=== PATIENT | female | born 1995 | race Caucasian/White ===

== ENCOUNTER 2025-03-03 07:55 | Inpatient (IN) | payer OTHER, SELFPAY ==
[2025-03-03] VITALS (51 sets, daily range): BP systolic 87–120; BP diastolic 46–76; PULSE 58–190; RESP 16–18; TEMP 36.4–36.7; O2SAT 80–100; BMI 25.6
[2025-03-03] MEDS: Lactated Ringers 1,000 ML 50 ML IV (08:20)
--- OUTSIDE RECORDS SUMMARY | 2025-03-03 08:25 | XMS RPT_ITS | CCD ---
Author Organization [facility] Informat ion Partnership [facility] Care Team Providers Care Process Stripper Name Role Phone Linda Griffith Attending Unavailable Linda Griffith Admitting Unavailable Emily Tsang Primary Care Unavailable Encounters Encounter Date Encounter Type Care Provider Facility Start: 03-03-2025 ambulatory Linda Griffith Facilit y:[facility] Payers Date Payer Category Payer Self-pay 2024 Unknown [id number] Unknown [id number] Summary Purpose Family History No Family History Records Found Advance Directives No Advanced Directives Records Found Additional Source Comments INFORMATION SOURCE (unrecogn ized section and content) DATE CREATED AUTHOR 03/03/2025 [facility] FOR RECORDS PERTAINING TO PATIENTS WHO ARE OR HAVE BEEN ENROLLED IN A CHEMICAL DEPENDENCY/SUBSTANCEABUSE PROGRAM, SOME INFORMATION MAY BE OMITTED. This clinical summary was aggregated from multiple sources. Caution should be exercised in using it in the provision of clinical care. This summary normalizes information from multiple sources, and as a consequence, information in this document may materially change the coding, format and clinical context of patient data. In addition, data may be omitted in some cases. CLINICAL DECISIONS SHOULD BE BASED ON THE PRIMARY CLINICAL RECORDS. [facility]. provides no warranty or guarantee of the accuracy or completeness of information in this document.
[2025-03-03 08:45] LABS: Hematocrit 38.5 % (37-47); Hemoglobin 13.5 g/dL (12.0-15.0); Immature Granulocytes Count 0.120 X10^3/uL (0.0-0.0); Mean Corp Hgb Conc 35.1 g/dL (32-36); Mean Corpuscular Volume 91.4 fL (81-99); Mean Platelet Vol. 10.2 fl (6.2-12.0); NRBC Flagged by Analyzer 0 % (0-5); Platelet Count 182 K/mm3 (150-450); RBC Distribution Width CV 13.2 % (11.6-14.6); RBC Distribution Width SD 42.9 fl (35.1-43.9); Red Blood Count 4.21 M/mm3 (4.2-5.4); White Blood Count 7.1 K/mm3 (4.4-11.0)
[2025-03-03] MEDS: Oxytocin 15 Units/NS 250ml 15 UNITS/250 ML IV.SOLN 2 UNITS IV (08:58)
[2025-03-03 09:45] LABS: Syphilis Antibodies Nonreactive (Nonreactive)
[2025-03-03] MEDS: Lactated Ringers 1,000 ML 999 ML IV ×2 (12:36→15:29)
[2025-03-03] MEDS: fentaNYL-bupivacaine (epidural) 100 ML BAG EPIDURAL (13:21)
[2025-03-03] MEDS: Lactated Ringers 1,000 ML 200 ML IV (16:33)
--- NOTE | 2025-03-03 18:29 | PCM.HP.OB ---
HPI - General General Date of Admission: 03/03/25 Date of Service: 03/03/25 Chief Complaint: induction HPI Narrative MARCY GIRALDO, is a 29 F who presents at 41 weeks and 1 day for induction of labor. She has had some irregular contractions. No gross vaginal bleeding or leaking of fluid. Maternal Data Information Final ARLETTE: [birth year] Gestational age: 41 1/7 [facility] Medical History (Updated 03/03/25 @ 18:[address] Marly Mac MD) Depression Home Medications ?Medication ?Instructions ?Recorded ?Last Taken ?Type aspirin 81 mg capsule 81 mg PO DAILY 03/03/25 03/02/25 20:00 History 81 mg vitamin-ferrous sulfate 1 tab PO DAILY 03/03/25 03/02/25 20:00 History 27 mg iron-folic acid 0.8 mg tablet 1 TAB Allergy/AdvReac Type Severity Reaction Status Date / Time No Known Allergies Allergy Verified 03/03/25 08:17 Social History Smoking Status: Never smoker History Elective abortions Hx Para 0 Spontaneous abortions Hx # Term Pregnancies Ectopic pregnancies Hx # Pregnancies Multiple births # of living children ROS Constitutional Constitutional: Denies fatigue, fever(s) or malaise Eyes Eyes: Denies change in vision ENT HEENT: Denies dizziness or headache(s) Cardiovascular Cardiovascular: Denies chest pain, dyspnea or lightheadedness Respiratory/Chest Respiratory/Chest: Denies cough or dyspnea Gastrointestinal Gastrointestinal: Denies change in bowel habits Genitourinary Genitourinary: Denies burning urination or genital lesions Integumentary Integumentary: Denies rash Neurologic Neurologic: Denies confusion, dizziness, headache(s), numbness or weakness Vital Signs Vital Signs Vital Signs: 03/03/25 08:06 03/03/25 08:06 03/03/25 08:06 Temperature Temperature Source Temporal Pulse Rate Respiratory Rate 16 Blood Pressure 114/76 BP Systolic 114 BP Diastolic 76 Pulse Ox 03/03/25 08:06 03/03/25 08:07 03/03/25 08:07 Temperature 97.9 F Temperature Source Pulse Rate 113 H Respiratory Rate Blood Pressure 114/76 BP Systolic 114 BP Diastolic 76 Pulse Ox 03/03/25 08:10 03/03/25 08:10 03/03/25 09:02 Temperature Temperature Source Pulse Rate 102 H Respiratory Rate Blood Pressure 114/70 BP Systolic 114 BP Diastolic 70 Pulse Ox 97 03/03/25 09:02 03/03/25 09:02 03/03/25 09:47 Temperature Temperature Source Pulse Rate 83 Respiratory Rate 16 Blood Pressure 113/68 BP Systolic 113 BP Diastolic 68 Pulse Ox 03/03/25 09:47 03/03/25 11:10 03/03/25 11:10 Temperature Temperature Source Pulse Rate 69 74 Respiratory Rate Blood Pressure 106/65 BP Systolic 106 BP Diastolic 65 Pulse Ox 03/03/25 11:10 03/03/25 11:10 03/03/25 11:10 Temperature 97.5 F L Temperature Source Temporal Pulse Rate Respiratory Rate 16 Blood Pressure BP Systolic BP Diastolic Pulse Ox 03/03/25 12:23 03/03/25 12:23 03/03/25 12:25 Temperature Temperature Source Pulse Rate 190 H 70 Respiratory Rate Blood Pressure BP Systolic BP Diastolic Pulse Ox 81 03/03/25 12:25 03/03/25 12:46 03/03/25 12:46 Temperature 98.1 F Temperature Source Pulse Rate Respiratory Rate 16 Blood Pressure BP Systolic BP Diastolic Pulse Ox 100 03/03/25 13:03 03/03/25 13:03 03/03/25 13:08 Temperature Temperature Source Pulse Rate 72 Respiratory Rate Blood Pressure 120/73 BP Systolic 120 BP Diastolic 73 Pulse Ox 100 03/03/25 13:08 03/03/25 13:08 03/03/25 13:08 Temperature Temperature Source Pulse Rate 73 74 Respiratory Rate Blood Pressure BP Systolic BP Diastolic Pulse Ox 100 03/03/25 13:12 03/03/25 13:12 03/03/25 13:13 Temperature Temperature Source Pulse Rate 74 75 Respiratory Rate Blood Pressure 115/57 L BP Systolic 115 BP Diastolic 57 Pulse Ox 03/03/25 13:13 03/03/25 13:14 03/03/25 13:14 Temperature Temperature Source Pulse Rate 77 Respiratory Rate Blood Pressure BP Systolic BP Diastolic Pulse Ox 100 90 03/03/25 13:15 03/03/25 13:18 03/03/25 13:18 Temperature Temperature Source Pulse Rate 75 Respiratory Rate 16 Blood Pressure 116/70 BP Systolic 116 BP Diastolic 70 Pulse Ox 03/03/25 13:18 03/03/25 13:20 03/03/25 13:22 Temperature Temperature Source Pulse Rate Respiratory Rate 16 Blood Pressure 117/68 BP Systolic 117 BP Diastolic 68 Pulse Ox 100 03/03/25 13:22 03/03/25 13:23 03/03/25 13:23 Temperature Temperature Source Pulse Rate 72 75 Respiratory Rate Blood Pressure BP Systolic BP Diastolic Pulse Ox 99 03/03/25 13:23 03/03/25 13:23 03/03/25 13:25 Temperature 98.0 F Temperature Source Temporal Pulse Rate Respiratory Rate Blood Pressure 114/72 BP Systolic 114 BP Diastolic 72 Pulse Ox 03/03/25 13:25 03/03/25 13:25 03/03/25 13:27 Temperature Temperature Source Pulse Rate 75 71 Respiratory Rate 16 Blood Pressure BP Systolic BP Diastolic Pulse Ox 03/03/25 13:27 03/03/25 13:28 03/03/25 13:28 Temperature Temperature Source Pulse Rate 73 Respiratory Rate Blood Pressure 108/67 BP Systolic 108 BP Diastolic 67 Pulse Ox 93 03/03/25 13:28 03/03/25 13:28 03/03/25 13:30 Temperature Temperature Source Pulse Rate 72 Respiratory Rate 16 Blood Pressure BP Systolic BP Diastolic Pulse Ox 100 03/03/25 13:32 03/03/25 13:32 03/03/25 13:33 Temperature Temperature Source Pulse Rate 70 72 Respiratory Rate Blood Pressure 112/68 BP Systolic 112 BP Diastolic 68 Pulse Ox 03/03/25 13:33 03/03/25 13:35 03/03/25 13:37 Temperature Temperature Source Pulse Rate Respiratory Rate 16 Blood Pressure 107/62 BP Systolic 107 BP Diastolic 62 Pulse Ox 99 03/03/25 13:37 03/03/25 13:38 03/03/25 13:38 Temperature Temperature Source Pulse Rate 70 66 Respiratory Rate Blood Pressure BP Systolic BP Diastolic Pulse Ox 100 03/03/25 13:40 03/03/25 13:40 03/03/25 13:40 Temperature Temperature Source Pulse Rate 63 Respiratory Rate 16 Blood Pressure 110/65 BP Systolic 110 BP Diastolic 65 Pulse Ox 03/03/25 14:00 03/03/25 14:00 03/03/25 14:03 Temperature Temperature Source Pulse Rate 65 Respiratory Rate Blood Pressure 99/46 L 105/58 L BP Systolic 99 105 BP Diastolic 46 58 Pulse Ox 03/03/25 14:03 03/03/25 14:07 03/03/25 14:07 Temperature Temperature Source Pulse Rate 73 58 L Respiratory Rate Blood Pressure 107/59 L BP Systolic 107 BP Diastolic 59 Pulse Ox 03/03/25 14:09 03/03/25 14:09 03/03/25 14:09 Temperature Temperature Source Pulse Rate 134 H 70 Respiratory Rate Blood Pressure BP Systolic BP Diastolic Pulse Ox 80 03/03/25 14:09 03/03/25 14:10 03/03/25 15:05 Temperature Temperature Source Temporal Pulse Rate Respiratory Rate 16 Blood Pressure BP Systolic BP Diastolic Pulse Ox 100 03/03/25 15:05 03/03/25 15:05 03/03/25 15:06 Temperature 97.9 F Temperature Source Pulse Rate Respiratory Rate 16 Blood Pressure 87/49 L BP Systolic 87 BP Diastolic 49 Pulse Ox 03/03/25 15:06 03/03/25 15:26 03/03/25 15:26 Temperature Temperature Source Pulse Rate 63 66 Respiratory Rate Blood Pressure 91/57 L BP Systolic 91 BP Diastolic 57 Pulse Ox 03/03/25 15:32 03/03/25 15:32 03/03/25 16:23 Temperature Temperature Source Pulse Rate 65 Respiratory Rate Blood Pressure 100/62 104/56 L BP Systolic 100 104 BP Diastolic 62 56 Pulse Ox 03/03/25 16:23 03/03/25 16:23 03/03/25 16:23 Temperature Temperature Source Temporal Pulse Rate 81 Respiratory Rate 16 Blood Pressure BP Systolic BP Diastolic Pulse Ox 03/03/25 16:23 03/03/25 17:25 03/03/25 17:25 Temperature 97.9 F Temperature Source Temporal Pulse Rate Respiratory Rate Blood Pressure 115/67 BP Systolic 115 BP Diastolic 67 Pulse Ox 03/03/25 17:25 03/03/25 17:25 03/03/25 17:25 Temperature 97.9 F Temperature Source Pulse Rate 74 Respiratory Rate 16 Blood Pressure BP Systolic BP Diastolic Pulse Ox Weight Weight: 67.8 kg Body Mass Index (BMI) 25.6 Physical Exam Const alert and no apparent distress General Appearance: cooperative HEENT normocephalic Resp normal respiratory effort Cardio regular rate GI soft to palpation GI Narrative: gravid, nontender, appropriate for gestational age Extremity no calf tenderness General Extremity: edema Skin no wounds Rashes: No rashes noted Psych activity/motor behavior normal Labs Labs Labs: Blood Type O POSITIVE Antibody Screen NEGATIVE Hct, (37-47) 38.5 % Hgb, (12.0-15.0) 13.5 g/dL Syphilis Total Ab, (Nonreactive) Nonreactive Assessment & Plan (1) 41 weeks gestation of : PLAN: Plan No appears patient likely in prodromal labor here for Pitocin induction of labor. Risk benefits and alternatives to Pitocin induction of labor with artificial rupture membranes as needed were discussed with the patient her questions were answered to her satisfaction she desires to proceed. Estimated White weight is less than 4500 g and pelvis clinically adequate to expect vaginal delivery may have routine pain control measures as needed during labor
--- NOTE | 2025-03-03 19:52 | EX.PCM.OBVAG ---
Assessment & Plan (1) (spontaneous vaginal delivery): (2) Single live : Maternal Data Information Final ARLETTE: [birth year] Gestational age: 41 1/7 Vaginal Delivery Maternal Presentation Maternal Presentation: Medically Indicated Induction Type of Induction: Pitocin and Amniotomy Vaginal Delivery Information Procedure Performed: Spontaneous Vaginal Delivery Surgeon/Practitioner: Marly Mac Date of Procedure: 03/03/25 Pre-Procedure Diagnosis: labor Post-Procedure Diagnosis: same Special Medications: none Estimated Blood Loss: 400 Time of Delivery: 19:26 Findings Description of procedure: A vigorous male infant was delivered [JESE] over [a second-degree perineal laceration]. The remainder the infant was delivered with maternal pushing and gentle traction only in less than 15 seconds. The Pitocin infusion was initiated for active management of the third stage. The cord was clamped and cut after cord pulsations ceased. The was attended to by the waiting nursing staff. The placenta was delivered spontaneously and intact. The cervix and vagina were intact. [The second-degree perineal laceration was repaired with 3-0 Vicryl suture in a running standard fashion.] Sponge and needle counts were correct. A vaginal sweep was completed by me. Procedure findings: Vigorous male infant Presentation: JESE Amniotic Membrane Rupture Type: Artificial Amniotic Fluid Description: Thick meconium Placental Delivery Description: Spontaneous Placenta Disposition: [facility] Specimen collected: No Cord Vessel Description: 3 Vessels Cord Entanglement: None A Gender: Male (1 minute): 9 (5 minute): 9 Delayed Cord Clamping: Yes Illuminating Engineer library circulation clerk: No Post Vaginal Deli Medications given after delivery: IV Pitocin Episiotomy Description: None Laceration: 2nd degree Complication Complications: No
[2025-03-03] MEDS: Oxytocin 15 Units/NS 250ml 15 UNITS/250 ML IV.SOLN 83 UNITS IV (20:06)
[2025-03-03] MEDS: GLYCERIN/WITCH HAZEL (TUCKS) MED..PAD 1 EACH TOPICAL (22:36)
[2025-03-03] MEDS: SELF ADMINISTRATION OF MEDS 1 EACH NOTE (22:36)
[2025-03-03] MEDS: Benzocaine/Lanolin/Aloe Vera 85 GM Spray 1 SPRAY TOPICAL (22:36)
[2025-03-04 02:49] VITALS: BP 80/49; PULSE 60; RESP 14; TEMP 36.4; O2SAT 96
[2025-03-04 04:37] VITALS: BP 83/54
[2025-03-04] MEDS: GLYCERIN/WITCH HAZEL (TUCKS) MED..PAD 1 EACH TOPICAL ×2 (04:41→17:18)
[2025-03-04] MEDS: Benzocaine/Lanolin/Aloe Vera 85 GM Spray 1 SPRAY TOPICAL ×2 (04:42→20:09)
[2025-03-04 06:03] LABS: Hematocrit 33.0 % (37-47); Hemoglobin 11.3 g/dL (12.0-15.0); Immature Granulocytes Count 0.090 X10^3/uL (0.0-0.0); Mean Corp Hgb Conc 34.2 g/dL (32-36); Mean Corpuscular Volume 93.2 fL (81-99); Mean Platelet Vol. 9.7 fl (6.2-12.0); NRBC Flagged by Analyzer 0 % (0-5); Platelet Count 150 K/mm3 (150-450); RBC Distribution Width CV 13.0 % (11.6-14.6); RBC Distribution Width SD 44.0 fl (35.1-43.9); Red Blood Count 3.54 M/mm3 (4.2-5.4); White Blood Count 10.2 K/mm3 (4.4-11.0)
[2025-03-04 08:37] VITALS: BP 88/52; PULSE 57; RESP 18; TEMP 36.1
--- NOTE | 2025-03-04 08:52 | PCM.PN.OB ---
Subjective Subjective Doing well. Ambulating and voiding without difficulty. Mild lochia. Breast feeding. Objective Data Objective Data Vital Signs: Vital Signs Temp Pulse Resp BP Pulse Ox O2 Del Method 97.0 F L 57 L 18 88/52 L 96 Room Air 03/04/25 08:37 03/04/25 08:37 03/04/25 08:37 03/04/25 08:37 03/04/25 02:49 03/04/25 02:49 Oxygen Delivery Method Room Air Weight: 67.8 kg Body Mass Index (BMI) 25.6 Intake & Output: Intake and Output for Last 24 Hours 03/02/25 03/03/25 03/04/25 23:59 23:59 23:59 Intake Total 3513.84 / 3513.84 Output Total 1000 / 1000 Balance 2513.84 / 2513.84 Lab / Micro Data 03/04/25 05:55 Labs: Laboratory Results - last 24 hr 03/03/25 08:20: Syphilis Total Ab Nonreactive, Blood Type O POSITIVE, Antibody Screen NEGATIVE 03/04/25 05:55: WBC 10.2, RBC 3.54 L, Hgb 11.3 L, Hct 33.0 L, MCV 93.2, MCH 31.9, MCHC 34.2, RDW Std Deviation 44.0 H, RDW Coeff of Rebeka 13.0, Plt Count 150, MPV 9.7, Immature Gran % (Auto) 0.900, Neut % (Auto) 76.9 H, Lymph % (Auto) 13.3 L, [place] % (Auto) 8.1, Eos % (Auto) 0.5, Baso % (Auto) 0.3, Absolute Neuts (auto) 7.8 H, Absolute Lymphs (auto) 1.35, Nucleated RBC % 0 ROS Constitutional Constitutional: Denies headache(s) Cardiovascular Cardiovascular: Denies chest pain or dyspnea Gastrointestinal Gastrointestinal: Denies nausea or vomiting Genitourinary Genitourinary: Denies dysuria Physical Exam Const alert, oriented x3 and no apparent distress General Appearance: cooperative and comfortable Eyes PERRL and EOMs intact bilaterally Resp normal respiratory effort GI soft to palpation and non-tender Uterus Palpation: uterus fundus firm ( below umbilicus) Extremity normal to inspection and full ROM Neuro oriented x3 and CN's II-XII intact bilaterally Psych mental status grossly normal Assessment & Plan (1) (spontaneous vaginal delivery): PLAN: Plan Routine care Possible discharge tonight
[2025-03-04 11:41] VITALS: BP 101/67; PULSE 72; RESP 20; TEMP 36.2; O2SAT 98
[2025-03-04] MEDS: SELF ADMINISTRATION OF MEDS 1 EACH NOTE (17:16)
[2025-03-04] MEDS: Polyethylene Glycol 3350 17 GM PACKET PO (17:17)
--- NOTE | 2025-03-04 17:46 | PCM.DC.SUM ---
Providers Date of Admission: 03/03/25 Date of Discharge: 03/04/25 Primary Care Physician: Emily Tsang REFINERY SUPERINTENDENT-C Reason For Visit: VAG Diagnosis Discharge Diagnosis (1) (spontaneous vaginal delivery): Status: Acute Code(s): O80 - Encounter for full-term uncomplicated delivery Plan Routine care Possible discharge tonight Medications at Discharge Home Medications vitamin-ferrous sulfate 27 mg iron-folic acid 0.8 mg tablet 1 tab PO DAILY 03/03/25 Hospital Course Operations None Procedures None Summary of Care Provided Minutes Spent on Discharge: 20 Hospital Course: Induction of labor for post dates. . No complications Physical Exam Const alert and no apparent distress Narrative: Fundus firm, below umbilicus. Weight / BMI Weight Weight: 67.8 kg Body Mass Index (BMI) 25.6 ABG / Lab / Microbiology Data 03/04/25 05:55 Laboratory: Laboratory Results - last 24 hr 03/04/25 05:55: WBC 10.2, RBC 3.54 L, Hgb 11.3 L, Hct 33.0 L, MCV 93.2, MCH 31.9, MCHC 34.2, RDW Std Deviation 44.0 H, RDW Coeff of Rebeka 13.0, Plt Count 150, MPV 9.7, Immature Gran % (Auto) 0.900, Neut % (Auto) 76.9 H, Lymph % (Auto) 13.3 L, [place] % (Auto) 8.1, Eos % (Auto) 0.5, Baso % (Auto) 0.3, Absolute Neuts (auto) 7.8 H, Absolute Lymphs (auto) 1.35, Nucleated RBC % 0 D/C Instructions May resume sexual activity in: 6 weeks DC O2, CPAP, BIPAP Needs Home O2 Discharge instructions: No Please Follow Up With: Marly Mac MD When: Follow up with our office in 1-2 and 6 weeks or as needed. [phone] Meaningful Use Info Meaningful Use Meaningful Use Diagnoses (Choose all that apply): None applicable Discharge Plan Admission Admit Date/Time: 03/03/25 07:55 Primary Reason for Your Visit: Labor Attending Provider: Marly Mac Primary Care Provider: Emily Tsang Discharge Orders/Prescriptions Prescriptions: Continued vit-ferrous sulfat-FA 27 mg iron- 0.8 mg tablet 1 tab PO DAILY Discontinued aspirin 81 mg capsule 81 mg PO DAILY Referrals / Follow Up: Emily Tsang, REFINERY SUPERINTENDENT-C [Primary Care Provider, Medical] Disposition Disposition (needs filled in before D/C Order can be placed): Home, Self Care
[2025-03-04 19:50] VITALS: BP 81/55; PULSE 88; RESP 16; TEMP 36.5; O2SAT 98
== END 2025-03-04 20:35 | disposition home or self-care (01) | DRG 807 ==
PROVIDERS: Admitting Provider Obstetrics & Gynecology; PCP Nurse Practitioner Family; Referring Provider Obstetrics & Gynecology; Visit Provider Obstetrics & Gynecology
DX: O48.0 Post-term pregnancy (principal); Z37.0 Single live birth; O70.1 Second degree perineal laceration during delivery; Z79.82 Long term (current) use of aspirin; Z3A.41 41 weeks gestation of pregnancy
CPT/HCPCS: 59025; 59050; 85025; 86780; 86850; 86900; 86901; 99221; G0378